=== PATIENT | female | born 1965 | race Caucasian/White ===

== ENCOUNTER 2021-05-26 04:48 | Inpatient (IN) ==
[2021-05-26] MEDS ORDERED: PROMETHAZINE 50 MG/ML AMPUL IM ONE (04:53)
--- NOTE | 2021-05-26 04:54 | Emergency Department Note ---
HPI General Chief complaint: Cold/Flu Symptoms Stated complaint: cold/flu symptoms Time Seen by Provider: 05/26/21 04:52 Source: patient Mode of arrival: ambulatory Limitations: no limitations History of Present Illness HPI Narrative: Narrative: The patient is a 55-year-old female who presents with a chief complaint of flulike symptoms, cough, shortness of breath and vomiting. Patient reports that her was diagnosed with Covid last week and since then she has been having body aches chills vomiting and now with cough and shortness of breath. She states she did not receive a Covid vaccine. Denies any history of SD or stroke or PE or DVT. Denies headache, neck pain or rashes. Related Data Home Medications Medication Instructions Recorded Confirmed omeprazole magnesium 20 mg 20 mg PO QDAY tab 06/11/17 08/27/18 tablet,delayed release Previous Rx's Medication Instructions Recorded epinephrine 0.3 mg/0.3 mL 0.3 mg SUB-Q ONCE #2 each 06/11/17 injection, auto-injector Allergies Allergy/AdvReac Type Severity Reaction Status Date / Time hydromorphone [From Dilaudid] Allergy Severe Bradycardia Verified 08/27/18 11:27 Iodinated Contrast Media Allergy Severe Anaphylaxis Verified 08/27/18 11:27 [Iodinated Contrast- Oral and IV Dye] Penicillins Allergy Unknown Hives Unverified 08/27/18 11:27 Sulfa (Sulfonamide Allergy Unknown Hives Unverified 08/27/18 11:27 Antibiotics) Tetracyclines Allergy Unknown Hives Unverified 08/27/18 11:27 Review of Systems ROS ROS Narrative: Narrative: All systems ED: reviewed and negative except as stated. [facility] Narrative Patient History Narrative: Narrative: Medical/Surgical/Family History All Active Problems (Updated 05/26/21 @ 05:40 by Jabari Culp DO) COVID-19 (Acute) Large breasts (Chronic) Neck pain (Chronic) Chest wall pain (Chronic) Upper back pain (Chronic) Breast pain (Acute) Breast mass, left (Acute) Arthralgia (Acute) Elevated blood pressure reading without diagnosis of hypertension (Acute) Dermatitis (Acute) Barretts esophagus (Chronic ~1997) Food allergy (Chronic) Animal dander allergy (Chronic) Allergic rhinitis (Chronic) H/O: hysterectomy (Chronic ~2001) Cancer of uterus (Chronic) Arthritis (Chronic) Medical History Allergic rhinitis Animal dander allergy Arthralgia February 2017 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 Tariq in [place], left side of forehead; Mohs procedure to remove Cancer of uterus slow growing uterine cancer; hysterectomy performed in [place] and ovaries were spared Chest wall pain secondary to large breasts Dermatitis February 2017 Elevated blood pressure reading without diagnosis of hypertension patient refused to have BP retested at 06/11/2017 appt Food allergy Gallbladder problem Removed Large breasts secondary to large breasts Neck pain secondary to large breasts Pneumonia recurrent pneumonia; has had both pneumovax, not certain who gave these to her Upper back pain secondary to large breasts Surgical History H/O knee surgery (~1995) related to work injury; meniscal injury left knee H/O: hysterectomy (~2001) History of cholecystectomy (~1997) Family History Mother Arthritis Breast cancer BRCA negative Hypertension, essential Type 2 diabetes mellitus Father Arthritis Skin cancer Sister Breast cancer BRCA testing negative Family/Other Breast cancer Aunt Grandfather Lung cancer Bone cancer Grandfather Lung cancer Stomach cancer Grandmother Dementia Brother Type 1 diabetes Family/Other Heart attack Maternal Uncles x2 Stroke Maternal Uncle x1 Social History Smoking Status: Former smoker Alcohol Intake Frequency: holiday/special occasion only Substance Use: does not use Exam Narrative Narrative: Narrative: General Limitations: no limitations General appearance: Present alert and other (ill appearing, vomiting) Head Head: Present atraumatic and normocephalic Eye Eye: Present normal appearance, PERRL and EOMI ENT ENT: Present normal exam, normal oropharynx and mucous membranes moist Neck Neck: Present normal inspection, full ROM and trachea midline Chest Chest: Present normal inspection and symmetric chest wall rise Respiratory Respiratory: Present normal lung sounds bilaterally Cardiovascular Cardiovascular: Present regular rate and normal rhythm Adbominal Abdominal: Present soft, normal bowel sounds and other (obese); Absent tenderness, guarding, rebound, organomegaly, Arnold's sign, tenderness at McBurney's Point and pulsatile mass Rectal Rectal: Present deferred Extremities Extremities: Present normal inspection and full ROM; Absent tenderness Back Back: Present normal inspection and full ROM; Absent tenderness Neurological Neurological: Present alert, oriented X3, CN II-XII intact, normal gait, motor sensory deficit and reflexes normal Psychiatric Psychiatric: Present normal affect Skin Skin: Present warm (WNL); Absent rash Course Course Course Narrative: EKG interpretation, 05/26/2021 at 5:24 AM. Rate 76, MT interval 152, QRS 88, QTc 423, sinus rhythm, normal axis, P waves are upright in leads I, II and III inverted in aVR no MT depression or elevation in lead II or aVR respectively normal axis, good R wave progression, no acute ST segment elevation or depression, no shortened MT interval, no biphasic T waves, no STEMI, nonspecific EKG. Covid screening is positive. Patient is 88% on room air. Patient will need to be admitted for IV remdesivir and further management of her Covid. Patient will be signed out at shift change to Dr. cornejo. Vital Signs Vital signs: Vital Signs Temperature 99.3 F H 05/26/21 04:49 Pulse Rate 95 H 05/26/21 04:49 Respiratory Rate 18 05/26/21 04:49 Blood Pressure 107/65 05/26/21 04:49 Pulse Oximetry (%) 89 L 05/26/21 04:49 Temperature 99.3 F H 05/26/21 04:49 Pulse Rate 89 05/26/21 05:52 Respiratory Rate 18 05/26/21 05:52 Blood Pressure 130/63 05/26/21 05:52 Pulse Oximetry (%) 86 L 05/26/21 05:52 MDM MDM Narrative Medical decision making narrative: Narrative: Lab Data Result diagrams: 05/26/21 05:50 05/26/21 05:49 ED POC Tests ED POC Tests: WATSON - Influenza A Negative WATSON - Influenza B Negative WATSON - SARS Antigen Positive Discharge Plan Patient/Caregiver Discharge Instructions Pt seen by SALES OFFICE ASSISTANT/PA only: No Clinical Impression: COVID-19 Patient Disposition: Still a Patient Condition: Serious Follow up with: Jade Morton, ANNELISE, COMPLIANCE PARALEGAL [Primary Care Provider] - Prescriptions: No Action omeprazole magnesium [Prilosec OTC] 20 mg tablet,delayed release (DR/EC) 20 mg PO QDAY RF: 0 epinephrine [EpiPen 2-Jose] 0.3 mg/0.3 mL auto-injector 0.3 mg SUB-Q ONCE Qty: 2 RF: 2
[2021-05-26] MEDS ORDERED: 0.9 % SODIUM CHLORIDE 1,000 ML IV ONE (05:02)
[2021-05-26] MEDS ORDERED: DEXAMETHASONE 10 MG/ML VIAL IV ONE (05:02)
[2021-05-26] MEDS ORDERED: ONDANSETRON 4 MG/2 ML VIAL ONE (05:13)
[2021-05-26] MEDS ORDERED: ONDANSETRON 4 MG/2 ML VIAL IV ONE (05:18)
[2021-05-26 06:33] LABS: Hematocrit 39.9 % (34.1-44.9); Hemoglobin 14.1 g/dL (11.2-15.7); Mean Cell Volume 89.9 fL (80.0-100.0); Mean Corpuscular HGB Conc 35.3 g/dL (31.0-36.0); Mean Platelet Volume 10.4 fL (7.4-10.4); Platelet Count 199 K/mcL (140-440); RBC 4.44 M/mcL (3.59-5.38); Red Cell Distribution Width 12.1 % (11.5-14.5)
[2021-05-26 06:44] LABS: Partial Thromboplastin Time 30.7 sec (20.0-37.0); Prothrombin Time 13.6 sec (11.9-14.5)
[2021-05-26 06:45] LABS: proBNP 103.5 pg/mL (<125.0)
[2021-05-26 06:46] LABS: ALT/SGPT 58 U/L (<40); AST/SGOT 60 U/L (<32); Albumin 3.8 gm/dL (3.2-5.2); Albumin/Globulin Ratio 1.2 (1.0-2.3); Alkaline Phosphatase 74 U/L (39-117); Bilirubin,Total 0.6 mg/dL (0.1-1.0); Blood Urea Nitrogen 10 mg/dL (6-20); Calcium 8.4 mg/dL (8.6-10.4); Carbon Dioxide 19 mmol/L (22-30); Chloride 96 mmol/L (96-108); Creatine Kinase 303 U/L (24-170); Globulin 3.2 gm/dL (2.2-3.7); Glomerular Filtration Rate 72; Glucose 119 mg/dL (70-105)
[2021-05-26 07:52] LABS: Band Neutrophils % 13 % (0-10); Lymphocytes % 11 % (15-49); Monocytes % (Manual) 7 % (1-12); Platelet Estimate NORMAL (Normal); RBC Morphology NORMAL (Normal); Reactive Lymphocytes 3 % (0-2); Segmented Neutrophils % 66 % (38-78)
--- NOTE | 2021-05-26 07:56 | XRay Report ---
HISTORY: Cold and flu symptoms, positive COVID test, uterine cancer, former smoker FINDINGS: There are subtle alveolar infiltrates in both lung bases, right greater than left. Lung volumes are relatively small due to suboptimal inspiration. There is no evidence of emphysema, mass or congestive heart failure. The heart size is normal. No pleural effusion is present. IMPRESSION: Mild pneumonia Interpreted and Authenticated by: Cam Camarillo 05/26/21
--- NOTE | 2021-05-26 08:32 | Internal Med History&Physical ---
HPI History of Present Illness Patient information: Note initiated : 05/26/21 at 8:28 am Service Date, if different from initiated Date: [] Patient: Marlen Asif 55 y/o F admitted on for cold/flu symptoms. Chief Complaint: [] History of present illness: Ms. Asif is a 55 year old female with a history of Mejía's esophagus, obesity, uterine cancer, skin cancer who developed nausea and vomiting on 05/22/2021 and presented to the ED where she was found to be hypoxic. Patient was started on nasal cannula oxygen supplementation, SARS-CoV-2 antigen test was positive. Hospital medicine was asked to admit patient. Patient says that she is not vaccinated, she thinks she was infected by SARS-CoV-2 by a guest at her bed and breakfast. Patient's main complaint when I saw her was diarrhea, the patient was saturating in the low 90s on room air. The patient has had a dry cough, and high-grade temperatures. CT of her chest showed bilateral subtle alveolar infiltrates. Review of systems Constitutional: positive for fatigue Eyes: no vision changes or pain Cardiovascular: no chest pain, no palpitations Respiratory: positive for dry cough Gastrointestinal: positive for nausea, vomiting, diarrhea Genitourinary: no dysuria or difficulty voiding Musculoskeletal: no arthralgia or myalgia Integumentary: no skin lesion or wound Neurological: no focal weakness or numbness Psychiatric: no anxiety or depression Physical exam Head: Atraumatic, normal inspection. Eyes: normal appearance, no scleral icterus. Neck: full ROM Respiratory: no respiratory distress. Cardiovascular: normal rate and rhythm, S1, S2. GI/Abdominal: soft, nontender, no guarding. Extremities: full range of motion, nontender. Neurological: CN II-XII intact, intact motor, intact sensation. Psychiatric: normal mood. Skin: warm, normal color PFSH PFSH All Active Problems (Updated 05/26/21 @ 05:40 by Jabari Culp DO) COVID-19 (Acute) Large breasts (Chronic) Neck pain (Chronic) Chest wall pain (Chronic) Upper back pain (Chronic) Breast pain (Acute) Breast mass, left (Acute) Arthralgia (Acute) Elevated blood pressure reading without diagnosis of hypertension (Acute) Dermatitis (Acute) Barretts esophagus (Chronic ~1997) Food allergy (Chronic) Animal dander allergy (Chronic) Allergic rhinitis (Chronic) H/O: hysterectomy (Chronic ~2001) Cancer of uterus (Chronic) Arthritis (Chronic) Medical History Allergic rhinitis Animal dander allergy Arthralgia February 2017 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 Tariq in [place], left side of forehead; Mohs procedure to remove Cancer of uterus slow growing uterine cancer; hysterectomy performed in [place] and ovaries were spared Chest wall pain secondary to large breasts Dermatitis February 2017 Elevated blood pressure reading without diagnosis of hypertension patient refused to have BP retested at 06/11/2017 appt Food allergy Gallbladder problem Removed Large breasts secondary to large breasts Neck pain secondary to large breasts Pneumonia recurrent pneumonia; has had both pneumovax, not certain who gave these to her Upper back pain secondary to large breasts Surgical History H/O knee surgery (~1995) related to work injury; meniscal injury left knee H/O: hysterectomy (~2001) History of cholecystectomy (~1997) Family History Mother Arthritis Breast cancer BRCA negative Hypertension, essential Type 2 diabetes mellitus Father Arthritis Skin cancer Sister Breast cancer BRCA testing negative Family/Other Breast cancer Aunt Grandfather Lung cancer Bone cancer Grandfather Lung cancer Stomach cancer Grandmother Dementia Brother Type 1 diabetes Family/Other Heart attack Maternal Uncles x2 Stroke Maternal Uncle x1 Social History (Updated 08/27/18 @ 11:59 by Trino Lopez MD) household members: spouse marital status: occupational status: employed occupation: [employer] pets and animals: No sexually active: Yes other: Children-2 well-balanced diet: daily or most days daily servings fruits/ve or more times/day physical activity: walking frequency: 1-2 times per week duration: 15-30 minutes/day alcohol intake frequency: holiday/special occasion only substance use type: does not use dangelo/tenriism: Episcopal special dangelo needs: No seatbelt use: always working smoke detector in home: Yes additional history: [place] () MEDS/ALLERGIES Home Medications and Allergies Allergies Allergy/AdvReac Type Severity Reaction Status Date / Time Iodinated Contrast Media Allergy Severe Anaphylaxis Verified 05/26/21 12:54 [Iodinated Contrast- Oral and IV Dye] Tetracyclines Allergy Intermediate Vomiting Unverified 05/26/21 12:53 Penicillins Allergy Mild Hives Unverified 05/26/21 10:29 Sulfa (Sulfonamide Allergy Mild Hives Unverified 05/26/21 10:29 Antibiotics) hydromorphone [From Dilaudid] AdvReac Intermediate Bradycardia Verified 05/26/21 10:29 EXAM Constitutional Vitals: Temp Pulse Resp BP Pulse Ox 99.3 F H 82 18 108/61 93 05/26/21 04:49 05/26/21 07:01 05/26/21 05:52 05/26/21 07:22 05/26/21 07:01 DATA Data Completed and Pending Labs: Labs from last 24 hours 05/26/21 05/26/21 05/26/21 05:50 05:50 05:50 WBC 6.0 RBC 4.44 Hgb 14.1 Hct 39.9 MCV 89.9 MCH 31.8 MCHC 35.3 RDW 12.1 Plt Count 199 MPV 10.4 Seg Neutrophils % 66 Band Neutrophils % 13 H Lymphocytes % 11 L Monocytes % (Manual) 7 Reactive Lymphocytes 3 H Platelet Estimate Normal RBC Morphology Normal PT 13.6 INR 1.0 APTT 30.7 VBG Lactic Acid Sodium Potassium Chloride Carbon Dioxide Anion Gap BUN Creatinine GFR Calculation Glucose Calcium Magnesium Total Bilirubin AST ALT Alkaline Phosphatase Total Creatine Kinase Troponin T < 0.01 NT-Pro-B Natriuret Pep Total Protein Albumin Globulin Albumin/Globulin Ratio Lipase Procalcitonin 05/26/21 05/26/21 05/26/21 05:49 05:49 05:47 WBC RBC Hgb Hct MCV MCH MCHC RDW Plt Count MPV Seg Neutrophils % Band Neutrophils % Lymphocytes % Monocytes % (Manual) Reactive Lymphocytes Platelet Estimate RBC Morphology PT INR APTT VBG Lactic Acid 1.5 Sodium 131 L Potassium 3.4 Chloride 96 Carbon Dioxide 19 L Anion Gap 16.0 BUN 10 Creatinine 0.9 GFR Calculation 72 Glucose 119 H Calcium 8.4 L Magnesium 1.9 Total Bilirubin 0.6 AST 60 H ALT 58 H Alkaline Phosphatase 74 Total Creatine Kinase 303 H Troponin T NT-Pro-B Natriuret Pep 103.5 Total Protein 7.0 Albumin 3.8 Globulin 3.2 Albumin/Globulin Ratio 1.2 Lipase 75 H Procalcitonin 0.09 A/P Narrative A/P Narrative: Assessment: 55 year old female with a history of Mejía's esophagus, uterine cancer, obesity admitted for acute hypoxic respiratory failure secondary to severe COVID-19 pneumonia. #Acute hypoxic respiratory failure #Severe COVID-19 pneumonia #Nausea and vomiting likely d/t COVID-19 #Mejía's esophagus #Obesity BMI 33 Plan -Dexamethasone and Remdesivir -Oxygen supplementation -IV fluid. -Check CRP, d-dimer. -Consider anticoagulation if d-dimer very high, otherwise prophylactic DVT lovenox dosing. -Daily labs, CRP. -Antiemetics prn. -Home med reconcilliation. -DVT ppx: Lovenox -Code status: Disintegrator Operator Spent With Patient Time: Total time spent is greater than 50% in coordination of care (as documented) at patient's floor/unit and/or counseling patient:
[2021-05-26] MEDS ORDERED: ENOXAPARIN 40 MG/0.4 ML SYRINGE SQ SCH (10:03)
[2021-05-26] MEDS ORDERED: ACETAMINOPHEN 325 MG TABLET PO PRN (10:03)
[2021-05-26] MEDS ORDERED: 0.9 % SODIUM CHLORIDE 1,000 ML IV SCH ×2 (10:03→15:38)
[2021-05-26] MEDS ORDERED: ONDANSETRON 4 MG/2 ML VIAL IV PRN (10:03)
[2021-05-26] MEDS ORDERED: REMDESIVIR 200 MG in 0.9 % SODIUM CHLORIDE 250 ML IV ONE (11:00)
[2021-05-26] MEDS: 0.9 % SODIUM CHLORIDE 10 ML SYRINGE IV SCH ×2 (13:28→21:21)
--- NOTE | 2021-05-26 14:13 | Emergency Department Note ---
HPI General Chief complaint: Cold/Flu Symptoms Stated complaint: cold/flu symptoms Time Seen by Provider: 05/26/21 04:52 Source: patient Mode of arrival: ambulatory Limitations: no limitations History of Present Illness HPI Narrative: Narrative: Patient received on signout. Related Data Home Medications Medication Instructions Recorded Confirmed omeprazole magnesium 20 mg 20 mg PO QDAY tab 06/11/17 08/27/18 tablet,delayed release Previous Rx's Medication Instructions Recorded epinephrine 0.3 mg/0.3 mL 0.3 mg SUB-Q ONCE #2 each 06/11/17 injection, auto-injector Allergies Allergy/AdvReac Type Severity Reaction Status Date / Time Iodinated Contrast Media Allergy Severe Anaphylaxis Verified 05/26/21 12:54 [Iodinated Contrast- Oral and IV Dye] Tetracyclines Allergy Intermediate Vomiting Unverified 05/26/21 12:53 Penicillins Allergy Mild Hives Unverified 05/26/21 10:29 Sulfa (Sulfonamide Allergy Mild Hives Unverified 05/26/21 10:29 Antibiotics) hydromorphone [From Dilaudid] AdvReac Intermediate Bradycardia Verified 05/26/21 10:29 Review of Systems ROS ROS Narrative: Narrative: [facility] Narrative Patient History Narrative: Narrative: Medical/Surgical/Family History All Active Problems (Updated 05/26/21 @ 05:40 by Jabari Culp DO) COVID-19 (Acute) Large breasts (Chronic) Neck pain (Chronic) Chest wall pain (Chronic) Upper back pain (Chronic) Breast pain (Acute) Breast mass, left (Acute) Arthralgia (Acute) Elevated blood pressure reading without diagnosis of hypertension (Acute) Dermatitis (Acute) Barretts esophagus (Chronic ~1997) Food allergy (Chronic) Animal dander allergy (Chronic) Allergic rhinitis (Chronic) H/O: hysterectomy (Chronic ~2001) Cancer of uterus (Chronic) Arthritis (Chronic) Medical History Allergic rhinitis Animal dander allergy Arthralgia February 2017 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 Tariq in [place], left side of forehead; Mohs procedure to remove Cancer of uterus slow growing uterine cancer; hysterectomy performed in [place] and ovaries were spared Chest wall pain secondary to large breasts Dermatitis February 2017 Elevated blood pressure reading without diagnosis of hypertension patient refused to have BP retested at 06/11/2017 appt Food allergy Gallbladder problem Removed Large breasts secondary to large breasts Neck pain secondary to large breasts Pneumonia recurrent pneumonia; has had both pneumovax, not certain who gave these to her Upper back pain secondary to large breasts Surgical History H/O knee surgery (~1995) related to work injury; meniscal injury left knee H/O: hysterectomy (~2001) History of cholecystectomy (~1997) Family History Mother Arthritis Breast cancer BRCA negative Hypertension, essential Type 2 diabetes mellitus Father Arthritis Skin cancer Sister Breast cancer BRCA testing negative Family/Other Breast cancer Aunt Grandfather Lung cancer Bone cancer Grandfather Lung cancer Stomach cancer Grandmother Dementia Brother Type 1 diabetes Family/Other Heart attack Maternal Uncles x2 Stroke Maternal Uncle x1 Social History Smoking Status: Former smoker Alcohol Intake Frequency: holiday/special occasion only Substance Use: does not use Exam Narrative Narrative: Narrative: General Limitations: no limitations Course Vital Signs Vital signs: Vital Signs Temperature 99.3 F H 05/26/21 04:49 Pulse Rate 95 H 05/26/21 04:49 Respiratory Rate 18 05/26/21 04:49 Blood Pressure 107/65 05/26/21 04:49 Pulse Oximetry (%) 89 L 05/26/21 04:49 Temperature 99.4 F H 05/26/21 12:30 Pulse Rate 86 05/26/21 12:30 Respiratory Rate 20 05/26/21 12:30 Blood Pressure 115/74 05/26/21 12:30 Pulse Oximetry (%) 91 05/26/21 12:30 MDM MDM Narrative Medical decision making narrative: Narrative: There is a bed available for the patient here at the hospital this morning. I spoke the on-call hospitalist. Case reviewed in detail over the phone. Hospitalist agreed with admission. Patient is agreeable with the plan. Her questions were answered. Lab Data Result diagrams: 05/26/21 05:50 05/26/21 05:49 Labs: Lab Results 05/26/21 05/26/21 05/26/21 Range/Units 05:47 05:49 05:49 WBC (4.5-11.0) K/mcL RBC (3.59-5.38) M/mcL Hgb (11.2-15.7) g/dL Hct (34.1-44.9) % MCV (80.0-100.0) fL MCH (26.0-34.0) pg MCHC (31.0-36.0) g/dL RDW (11.5-14.5) % Plt Count (140-440) K/mcL MPV (7.4-10.4) fL Seg Neutrophils % (38-78) % Band Neutrophils % (0-10) % Lymphocytes % (15-49) % Monocytes % (Manual) (1-12) % Reactive Lymphocytes (0-2) % Platelet Estimate (Normal) RBC Morphology (Normal) PT (11.9-14.5) sec INR (0.9-1.1) APTT (20.0-37.0) sec VBG Lactic Acid 1.5 (0.5-2.0) mmol/L Sodium 131 L (133-145) mmol/L Potassium 3.4 (3.3-5.1) mmol/L Chloride 96 (96-108) mmol/L Carbon Dioxide 19 L (22-30) mmol/L Anion Gap 16.0 (8.0-16.0) BUN 10 (6-20) mg/dL Creatinine 0.9 (0.6-1.1) mg/dL GFR Calculation 72 Glucose 119 H (70-105) mg/dL Calcium 8.4 L (8.6-10.4) mg/dL Magnesium 1.9 (1.6-2.5) mg/dL Total Bilirubin 0.6 (0.1-1.0) mg/dL AST 60 H (<32) U/L ALT 58 H (<40) U/L Alkaline Phosphatase 74 (39-117) U/L Total Creatine Kinase 303 H (24-170) U/L Troponin T (<0.03) ng/mL C-Reactive Protein (0.03-0.80) mg/dL NT-Pro-B Natriuret Pep 103.5 (<125.0) pg/mL Total Protein 7.0 (5.9-8.4) gm/dL Albumin 3.8 (3.2-5.2) gm/dL Globulin 3.2 (2.2-3.7) gm/dL Albumin/Globulin Ratio 1.2 (1.0-2.3) Lipase 75 H (7-60) U/L Procalcitonin 0.09 (<0.10) ng/mL 05/26/21 05/26/21 05/26/21 Range/Units 05:49 05:50 05:50 WBC 6.0 (4.5-11.0) K/mcL RBC 4.44 (3.59-5.38) M/mcL Hgb 14.1 (11.2-15.7) g/dL Hct 39.9 (34.1-44.9) % MCV 89.9 (80.0-100.0) fL MCH 31.8 (26.0-34.0) pg MCHC 35.3 (31.0-36.0) g/dL RDW 12.1 (11.5-14.5) % Plt Count 199 (140-440) K/mcL MPV 10.4 (7.4-10.4) fL Seg Neutrophils % 66 (38-78) % Band Neutrophils % 13 H (0-10) % Lymphocytes % 11 L (15-49) % Monocytes % (Manual) 7 (1-12) % Reactive Lymphocytes 3 H (0-2) % Platelet Estimate Normal (Normal) RBC Morphology Normal (Normal) PT 13.6 (11.9-14.5) sec INR 1.0 (0.9-1.1) APTT 30.7 (20.0-37.0) sec VBG Lactic Acid (0.5-2.0) mmol/L Sodium (133-145) mmol/L Potassium (3.3-5.1) mmol/L Chloride (96-108) mmol/L Carbon Dioxide (22-30) mmol/L Anion Gap (8.0-16.0) BUN (6-20) mg/dL Creatinine (0.6-1.1) mg/dL GFR Calculation Glucose (70-105) mg/dL Calcium (8.6-10.4) mg/dL Magnesium (1.6-2.5) mg/dL Total Bilirubin (0.1-1.0) mg/dL AST (<32) U/L ALT (<40) U/L Alkaline Phosphatase (39-117) U/L Total Creatine Kinase (24-170) U/L Troponin T (<0.03) ng/mL C-Reactive Protein 2.30 H (0.03-0.80) mg/dL NT-Pro-B Natriuret Pep (<125.0) pg/mL Total Protein (5.9-8.4) gm/dL Albumin (3.2-5.2) gm/dL Globulin (2.2-3.7) gm/dL Albumin/Globulin Ratio (1.0-2.3) Lipase (7-60) U/L Procalcitonin (<0.10) ng/mL 05/26/21 Range/Units 05:50 WBC (4.5-11.0) K/mcL RBC (3.59-5.38) M/mcL Hgb (11.2-15.7) g/dL Hct (34.1-44.9) % MCV (80.0-100.0) fL MCH (26.0-34.0) pg MCHC (31.0-36.0) g/dL RDW (11.5-14.5) % Plt Count (140-440) K/mcL MPV (7.4-10.4) fL Seg Neutrophils % (38-78) % Band Neutrophils % (0-10) % Lymphocytes % (15-49) % Monocytes % (Manual) (1-12) % Reactive Lymphocytes (0-2) % Platelet Estimate (Normal) RBC Morphology (Normal) PT (11.9-14.5) sec INR (0.9-1.1) APTT (20.0-37.0) sec VBG Lactic Acid (0.5-2.0) mmol/L Sodium (133-145) mmol/L Potassium (3.3-5.1) mmol/L Chloride (96-108) mmol/L Carbon Dioxide (22-30) mmol/L Anion Gap (8.0-16.0) BUN (6-20) mg/dL Creatinine (0.6-1.1) mg/dL GFR Calculation Glucose (70-105) mg/dL Calcium (8.6-10.4) mg/dL Magnesium (1.6-2.5) mg/dL Total Bilirubin (0.1-1.0) mg/dL AST (<32) U/L ALT (<40) U/L Alkaline Phosphatase (39-117) U/L Total Creatine Kinase (24-170) U/L Troponin T < 0.01 (<0.03) ng/mL C-Reactive Protein (0.03-0.80) mg/dL NT-Pro-B Natriuret Pep (<125.0) pg/mL Total Protein (5.9-8.4) gm/dL Albumin (3.2-5.2) gm/dL Globulin (2.2-3.7) gm/dL Albumin/Globulin Ratio (1.0-2.3) Lipase (7-60) U/L Procalcitonin (<0.10) ng/mL ED POC Tests ED POC Tests: WATSON - Influenza A Negative WATSON - Influenza B Negative WATSON - SARS Antigen Positive Discharge Plan Patient/Caregiver Discharge Instructions Pt seen by AUTOMATION TEST ENGINEER/PA only: No Clinical Impression: COVID-19 Patient Disposition: Xfer As Inpt ([facility]) Condition: Serious Discharge Date/Time: 05/26/21 09:47
[2021-05-26 18:04] LABS: Amphetamine Screen,Urine None detected; Barbiturate Screen,Urine None detected; Benzodiazepines Screen,Urine None detected; Cannabinoid Screen,Urine None detected; Cocaine Screen,Urine None detected; Opiate Screen,Urine Suspect Positive; Oxycodone, Urine Screen None detected; Phencyclidine Screen,Urine None detected
[2021-05-26] MEDS: LOPERAMIDE 2 MG CAPSULE PO PRN (21:18)
[2021-05-26] MEDS: ENOXAPARIN 100 MG/ML SYRINGE SQ SCH (21:20)
[2021-05-26] MEDS: SENNOSIDES 1 TABLET PO SCH ×2 (21:20→21:41)
[2021-05-27] MEDS: 0.9 % SODIUM CHLORIDE 10 ML SYRINGE IV SCH ×3 (04:21→21:22)
[2021-05-27] MEDS: guaiFENesin/CODEINE 10 ML UDC PO PRN ×2 (04:25→11:17)
[2021-05-27 07:04] LABS: Basophils # (Auto) 0 K/mcL (0.00-0.30); Basophils % (Auto) 0 % (0.0-2.0); Eosinophils # (Auto) 0 K/mcL (0.00-0.70); Eosinophils % (Auto) 0 % (0.0-7.0); Hematocrit 37.4 % (34.1-44.9); Hemoglobin 12.6 g/dL (11.2-15.7); Lymphocytes # (Auto) 2.24 K/mcL (1.50-4.80); Lymphocytes % (Auto) 34.3 % (15.5-49.0); Mean Cell Volume 94.9 fL (80.0-100.0); Mean Corpuscular HGB Conc 33.7 g/dL (31.0-36.0); Mean Platelet Volume 10.5 fL (7.4-10.4); Monocytes # (Auto) 0.37 K/mcL (0.10-0.90); Monocytes % (Auto) 5.7 % (1.0-12.0); Platelet Count 169 K/mcL (140-440); RBC 3.94 M/mcL (3.59-5.38); Red Cell Distribution Width 12.7 % (11.5-14.5); WBC 6.5 K/mcL (4.5-11.0)
[2021-05-27 08:39] LABS: ALT/SGPT 42 U/L (<40); AST/SGOT 46 U/L (<32); Alkaline Phosphatase 60 U/L (39-117); Bilirubin,Direct < 0.2 mg/dL (0-0.3); Bilirubin,Total 0.5 mg/dL (0.1-1.0); Blood Urea Nitrogen 8 mg/dL (6-20); Calcium 7.9 mg/dL (8.6-10.4); Carbon Dioxide 21 mmol/L (22-30); Chloride 98 mmol/L (96-108); Globulin 3.1 gm/dL (2.2-3.7); Glomerular Filtration Rate 83; Glucose 91 mg/dL (70-105); Lactate Dehydrogenase 349 U/L (135-225); Phosphorous 2.4 mg/dL (2.5-4.5); Triglycerides 60 mg/dL (<150); Uric Acid 4.7 mg/dL (2.5-8.0)
[2021-05-27] MEDS: DEXAMETHASONE 10 MG/ML VIAL IV SCH (11:15)
[2021-05-27] MEDS: ENOXAPARIN 100 MG/ML SYRINGE SQ SCH ×2 (11:15→21:21)
[2021-05-27] MEDS: REMDESIVIR 100 MG in 0.9 % SODIUM CHLORIDE 250 ML IV SCH (12:04)
--- NOTE | 2021-05-27 13:13 | EKG ---
[facility] Test Date: 2021-05-26 Pat Name: Marlen Asif Department: ED Room: Gender: Female [employer]: SE : 1965 Requested By: Jabari Culp Order Number: [id number] Reading MD: Naldo Cordero Measurements Intervals [place] Rate: 76 P: 6 ID: [id number] QRS: 26 QRSD: 88 T: 53 QT: 376 QTc: 423 Interpretive Statements SINUS RHYTHM Electronically Signed On 05-27-2021 13:12:58 PDT by Naldo Cordero /store/M0/[id number]
--- NOTE | 2021-05-27 13:59 | Internal Med Progress Note ---
SUBJECTIVE Subjective Patient information: Note initiated : 05/27/21 at 1:59 pm Service Date, if different from initiated Date: [] Patient: Marlen Asif 55 y/o F admitted on 05/26/21 for cold/flu symptoms. Chief Complaint: [] Interval history: Ms. Asif is a 55 year old female with a history of Mejía's esophagus, obesity, uterine cancer, skin cancer who developed nausea and vomiting on 05/22/2021 and presented to the ED where she was found to be hypoxic. Patient was started on nasal cannula oxygen supplementation, SARS-CoV-2 antigen test was positive. Hospital medicine was asked to admit patient. Patient says that she is not vaccinated, she thinks she was infected by SARS-CoV-2 by a guest at her bed and breakfast. Patient's main complaint when I saw her was diarrhea, the patient was saturating in the low 90s on room air. The patient has had a dry cough, and high-grade temperatures. CT of her chest showed bilateral subtle alveolar infiltrates. 05/27: Feels a little better today, on 2 l/min oxygen, high grade temp overnight, CRP increased mildly. Physical exam Head: Atraumatic, normal inspection. Eyes: normal appearance, no scleral icterus. Neck: full ROM Respiratory: no respiratory distress. Cardiovascular: normal rate and rhythm, S1, S2. GI/Abdominal: soft, nontender, no guarding. Extremities: full range of motion, nontender. Neurological: CN II-XII intact, intact motor, intact sensation. Psychiatric: normal mood. Skin: warm, normal color Constitutional Vitals: Vital Signs Temp Pulse Resp BP Pulse Ox 97.8 F 81 20 124/77 91 05/27/21 08:00 05/27/21 08:00 05/27/21 08:00 05/27/21 08:00 05/27/21 10:41 Period Temp Pulse Resp BP Sys/Hurt Pulse Ox Last 24 Hr 97.8 F-100.4 F 77-87 18-20 109-125/72-84 90-92 Intake and Output 05/26/21 05/27/21 05/27/21 21:59 05:59 13:59 Intake Total 0657 974 5561 Output Total 750 1500 Balance 960 -700 1250 Weight 104.054 kg 104.054 kg Patient Weight 05/28/21 05:59 Weight 104.054 kg Intake & Output: Intake & Output 05/26/21 05/27/21 05/27/21 21:59 05:59 13:59 Intake Total 8930 656 1245 Output Total 750 1500 Balance 960 -700 1250 Weight 104.054 kg 104.054 kg Intake: IV 1000 1250 Sodium Chloride 0.9% 1,000 ml @ 1000 1000 100 mls/hr IV .Q10H [facility] Rx#: [id number] Veklury 100 mg In Sodium 250 Chloride 0.9% 250 ml @ 500 mls/ hr IV Q24H [facility] Rx#:[id number] Oral 710 800 Output: Void Amount 750 1500 Other: Meal Dinner Percent of Meal Consumed 50% Feeding Ability Independent Urine Appearance Clear Clear Urine Color Bright Yellow Bright Yellow Urine Odor Strong Stool Size Small Stool Color Brown Stool Consistency Watery Loose # Bowel Movements 3 OBJ DATA Labs CBC & Chem 7: 05/27/21 05:25 05/27/21 05:25 Labs: Abnormal Lab Results 05/27/21 05/27/21 05/26/21 05:25 05:25 16:30 MPV 10.5 H Band Neutrophils % Lymphocytes % Reactive Lymphocytes D-Dimer Sodium 132 L Carbon Dioxide 21 L Glucose Calcium 7.9 L Phosphorus 2.4 L GGT 138 H AST 46 H ALT 42 H Lactate Dehydrogenase 349 H Total Creatine Kinase C-Reactive Protein 3.00 H Albumin 3.0 L Lipase Urine Opiates Screen Suspect positive A 05/26/21 05/26/21 05/26/21 10:40 05:50 05:49 MPV Band Neutrophils % 13 H Lymphocytes % 11 L Reactive Lymphocytes 3 H D-Dimer 3.79 H Sodium Carbon Dioxide Glucose Calcium Phosphorus GGT AST ALT Lactate Dehydrogenase Total Creatine Kinase C-Reactive Protein 2.30 H Albumin Lipase Urine Opiates Screen 05/26/21 05:49 MPV Band Neutrophils % Lymphocytes % Reactive Lymphocytes D-Dimer Sodium 131 L Carbon Dioxide 19 L Glucose 119 H Calcium 8.4 L Phosphorus GGT AST 60 H ALT 58 H Lactate Dehydrogenase Total Creatine Kinase 303 H C-Reactive Protein Albumin Lipase 75 H Urine Opiates Screen Meds: Medications Acetaminophen (Acetaminophen 325 Mg Tablet) 650 mg PO Q6HP PRN; Protocol PRN Reason: Per Pain Protocol/Fever > 101 Dexamethasone (Dexamethasone 10 Mg/Ml Vial) 6 mg IV DAILY [facility] Stop: 06/05/21 08:59 Last Admin: 05/27/21 11:15 Dose: 6 mg Documented by: Enoxaparin Sodium (Enoxaparin 100 Mg/Ml Syringe) 100 mg SQ BID [facility] Last Admin: 05/27/21 11:15 Dose: 100 mg Documented by: Guaifenesin/Codeine Phosphate (Guaifenesin/Codeine 10 Ml Udc) 5 ml PO Q4HP PRN PRN Reason: Cough Last Admin: 05/27/21 11:17 Dose: 5 ml Documented by: REMDESIVIR 100 mg/ Sodium (Chloride) 250 mls @ 500 mls/hr IV Q24H [facility] Stop: 05/30/21 10:29 Last Infusion: 05/27/21 12:38 Dose: Infused Documented by: Loperamide HCl (Loperamide 2 Mg Capsule) 2 mg PO PRN PRN PRN Reason: Diarrhea Last Admin: 05/26/21 21:18 Dose: 2 mg Documented by: Ondansetron HCl (Ondansetron 4 Mg/2 Ml Vial) 4 mg IV Q6HP PRN PRN Reason: Nausea And Vomiting Senna (Sennosides 1 Tablet) 2 tab PO HS [facility] Last Admin: 05/26/21 21:41 Dose: Not Given Documented by: Sodium Chloride (0.9 % Sodium Chloride 10 Ml Syringe) 10 ml IV Q8 [facility] Last Admin: 05/27/21 04:21 Dose: Not Given Documented by: A/P Narrative A/P Narrative: Assessment: 55 year old female with a history of Mejía's esophagus, uterine cancer, obesity admitted for acute hypoxic respiratory failure secondary to severe COVID-19 pneumonia. #Acute hypoxic respiratory failure #Severe COVID-19 pneumonia #Nausea and vomiting likely d/t COVID-19 #Mejía's esophagus #Obesity BMI 33 Plan -Dexamethasone and Remdesivir -Oxygen supplementation -IV fluid. -Therapeutic lovenox BID (per ACTIV-4a data) -Daily labs, CRP. -Antiemetics prn. -Essential home medications. -DVT ppx: Lovenox -Code status: Glass Breaker Spent With Patient Time: Total time spent is greater than 50% in coordination of care (as documented) at patient's floor/unit and/or counseling patient:
--- NOTE | 2021-05-27 20:28 | Internal Med Progress Note ---
SUBJECTIVE Subjective Patient information: Note initiated : 05/27/21 at 8:27 pm Service Date, if different from initiated Date: [] Patient: Marlen Asif 55 y/o F admitted on 05/26/21 for cold/flu symptoms. Chief Complaint: [] Interval history: Ms. Asif is a 55 year old female with a history of Mejía's esophagus, obesity, uterine cancer, skin cancer who developed nausea, vomiting, and diarrhea on 05/22/2021 and presented to the ED where she was found to be hypoxic. Patient was started on nasal cannula oxygen supplementation, SARS-CoV-2 antigen test was positive. Hospital medicine was asked to admit patient. Patient says that she is not vaccinated, she thinks she was infected by SARS-CoV-2 by a guest at her bed and breakfast. Patient's main complaint when I saw her was diarrhea, the patient was saturating in the low 90s on room air. The patient has had a dry cough, and high-grade temperatures. CT of her chest showed bilateral subtle alveolar infiltrates. 05/27: Feels a little better today, on 2 l/min oxygen, high grade temp overnight, CRP increased mildly. Started Imodium prn for diarrhea. 05/28: Continues on 2 l/min, feels like she is improving overall, diarrhea well controlled with imodium, resolved nausea and vomiting, improved appetite. Review of systems: afebrile, no nausea, diarrhea improved, no dypsnea at rest. Physical exam Head: Atraumatic, normal inspection. Eyes: normal appearance, no scleral icterus. Neck: full ROM Respiratory: nasal canula oxygen, no respiratory distress. Cardiovascular: normal rate and rhythm, S1, S2. GI/Abdominal: obesely distended, soft, nontender, no guarding. Extremities: full range of motion, nontender. Neurological: CN II-XII intact, intact motor, intact sensation. Psychiatric: normal mood. Skin: warm, normal color Constitutional Vitals: Vital Signs Temp Pulse Resp BP Pulse Ox 97.0 F 81 24 H 123/90 90 05/27/21 16:00 05/27/21 16:00 05/27/21 16:00 05/27/21 16:00 05/27/21 16:00 Period Temp Pulse Resp BP Sys/Hurt Pulse Ox Last 24 Hr 97.0 F-99.1 F 77-81 20-24 123-132/72-90 90-91 Intake and Output 05/27/21 05/27/21 05/27/21 05:59 13:59 21:59 Intake Total 800 1450 Output Total 1500 Balance -700 1450 Weight 104.054 kg Patient Weight 05/28/21 05:59 Weight 104.054 kg Intake & Output: Intake & Output 05/27/21 05/27/21 05/27/21 05:59 13:59 21:59 Intake Total 800 1450 Output Total 1500 Balance -700 1450 Weight 104.054 kg Intake: IV 1250 Sodium Chloride 0.9% 1,000 ml @ 1000 100 mls/hr IV .Q10H [facility] Rx#: [id number] Veklury 100 mg In Sodium 250 Chloride 0.9% 250 ml @ 500 mls/ hr IV Q24H [facility] Rx#:[id number] Oral 800 200 Output: Void Amount 1500 Other: Meal Breakfast Percent of Meal Consumed 100% Feeding Ability Independent Urine Appearance Clear Urine Color Bright Yellow Stool Consistency Loose # Bowel Movements 3 OBJ DATA Labs CBC & Chem 7: 05/27/21 05:25 05/28/21 05:22 Labs: Abnormal Lab Results 05/27/21 05/27/21 05/26/21 05:25 05:25 16:30 MPV 10.5 H Band Neutrophils % Lymphocytes % Reactive Lymphocytes D-Dimer Sodium 132 L Carbon Dioxide 21 L Glucose Calcium 7.9 L Phosphorus 2.4 L GGT 138 H AST 46 H ALT 42 H Lactate Dehydrogenase 349 H Total Creatine Kinase C-Reactive Protein 3.00 H Albumin 3.0 L Lipase Urine Opiates Screen Suspect positive A 05/26/21 05/26/21 05/26/21 10:40 05:50 05:49 MPV Band Neutrophils % 13 H Lymphocytes % 11 L Reactive Lymphocytes 3 H D-Dimer 3.79 H Sodium Carbon Dioxide Glucose Calcium Phosphorus GGT AST ALT Lactate Dehydrogenase Total Creatine Kinase C-Reactive Protein 2.30 H Albumin Lipase Urine Opiates Screen 05/26/21 05:49 MPV Band Neutrophils % Lymphocytes % Reactive Lymphocytes D-Dimer Sodium 131 L Carbon Dioxide 19 L Glucose 119 H Calcium 8.4 L Phosphorus GGT AST 60 H ALT 58 H Lactate Dehydrogenase Total Creatine Kinase 303 H C-Reactive Protein Albumin Lipase 75 H Urine Opiates Screen Meds: Medications Acetaminophen (Acetaminophen 325 Mg Tablet) 650 mg PO Q6HP PRN; Protocol PRN Reason: Per Pain Protocol/Fever > 101 Dexamethasone (Dexamethasone 10 Mg/Ml Vial) 6 mg IV DAILY [facility] Stop: 06/05/21 08:59 Last Admin: 05/27/21 11:15 Dose: 6 mg Documented by: Enoxaparin Sodium (Enoxaparin 100 Mg/Ml Syringe) 100 mg SQ BID [facility] Last Admin: 05/27/21 11:15 Dose: 100 mg Documented by: Guaifenesin/Codeine Phosphate (Guaifenesin/Codeine 10 Ml Udc) 5 ml PO Q4HP PRN PRN Reason: Cough Last Admin: 05/27/21 11:17 Dose: 5 ml Documented by: REMDESIVIR 100 mg/ Sodium (Chloride) 250 mls @ 500 mls/hr IV Q24H [facility] Stop: 05/30/21 10:29 Last Infusion: 05/27/21 12:38 Dose: Infused Documented by: Loperamide HCl (Loperamide 2 Mg Capsule) 2 mg PO PRN PRN PRN Reason: Diarrhea Last Admin: 05/26/21 21:18 Dose: 2 mg Documented by: Ondansetron HCl (Ondansetron 4 Mg/2 Ml Vial) 4 mg IV Q6HP PRN PRN Reason: Nausea And Vomiting Senna (Sennosides 1 Tablet) 2 tab PO HS [facility] Last Admin: 05/26/21 21:41 Dose: Not Given Documented by: Sodium Chloride (0.9 % Sodium Chloride 10 Ml Syringe) 10 ml IV Q8 [facility] Last Admin: 05/27/21 12:45 Dose: 10 ml Documented by: A/P Narrative A/P Narrative: Assessment: 55 year old female with a history of Mejía's esophagus, uterine cancer, obesity admitted for acute hypoxic respiratory failure secondary to severe COVID-19 pneumonia. #Acute hypoxic respiratory failure #Severe COVID-19 pneumonia #Nausea, vomiting, diarrhea likely d/t COVID-19 #Mejía's esophagus #Obesity BMI 33 Plan -Dexamethasone and Remdesivir -Oxygen supplementation as needed. -Xray chest today. -Therapeutic lovenox BID while inpatiet (per ACTIV-4a trial data). -Daily labs, CRP. -Zofran prn. -Imodium prn. -Essential home medications. -DVT ppx: Lovenox -Code status: Dean Of Admissions Spent With Patient Time: Total time spent is greater than 50% in coordination of care (as documented) at patient's floor/unit and/or counseling patient:
[2021-05-27] MEDS: SENNOSIDES 1 TABLET PO SCH (21:22)
[2021-05-28] MEDS: 0.9 % SODIUM CHLORIDE 10 ML SYRINGE IV SCH ×3 (04:39→20:59)
[2021-05-28 07:52] LABS: ALT/SGPT 36 U/L (<40); AST/SGOT 38 U/L (<32); Albumin/Globulin Ratio 0.9 (1.0-2.3); Alkaline Phosphatase 65 U/L (39-117); Bilirubin,Direct < 0.2 mg/dL (0-0.3); Bilirubin,Total 0.4 mg/dL (0.1-1.0); Blood Urea Nitrogen 8 mg/dL (6-20); Calcium 8.2 mg/dL (8.6-10.4); Carbon Dioxide 23 mmol/L (22-30); Chloride 102 mmol/L (96-108); Globulin 3.2 gm/dL (2.2-3.7); Glomerular Filtration Rate 97; Glucose 152 mg/dL (70-105); Lactate Dehydrogenase 428 U/L (135-225); Phosphorous 2.3 mg/dL (2.5-4.5); Triglycerides 81 mg/dL (<150); Uric Acid 4.4 mg/dL (2.5-8.0)
[2021-05-28] MEDS: ENOXAPARIN 100 MG/ML SYRINGE SQ SCH ×2 (08:28→20:57)
[2021-05-28] MEDS: DEXAMETHASONE 10 MG/ML VIAL IV SCH (08:28)
--- NOTE | 2021-05-28 09:28 | XRay Report ---
HISTORY: Severe COVID pneumonia FINDINGS: There are moderate generalized alveolar infiltrates in both lungs with the greatest involvement in the right lower lobe. These have become worse since 05/26/21. No pleural effusion is present. The heart size is normal. IMPRESSION: Worsening bilateral pneumonia Interpreted and Authenticated by: Cam Camarillo 05/28/21
[2021-05-28] MEDS: REMDESIVIR 100 MG in 0.9 % SODIUM CHLORIDE 250 ML IV SCH (10:33)
--- NOTE | 2021-05-28 13:41 | Internal Med Progress Note ---
SUBJECTIVE Subjective Patient information: Note initiated : 05/28/21 at 1:37 pm Service Date, if different from initiated Date: [] Patient: Marlen Asif 55 y/o F admitted on 05/26/21 for cold/flu symptoms. Chief Complaint: [] Interval history: Ms. Asif is a 55 year old female with a history of Mejía's esophagus, obesity, uterine cancer, skin cancer who developed nausea, vomiting, and diarrhea on 05/22/2021 and presented to the ED where she was found to be hypoxic. Patient was started on nasal cannula oxygen supplementation, SARS-CoV-2 antigen test was positive. Hospital medicine was asked to admit patient. Patient says that she is not vaccinated, she thinks she was infected by SARS-CoV-2 by a guest at her bed and breakfast. Patient's main complaint when I saw her was diarrhea, the patient was saturating in the low 90s on room air. The patient has had a dry cough, and high-grade temperatures. CT of her chest showed bilateral subtle alveolar infiltrates. 05/27: Feels a little better today, on 2 l/min oxygen, high grade temp overnight, CRP increased mildly. Started Imodium prn for diarrhea. 05/28: Continues on 2 l/min, feels like she is improving overall, diarrhea well controlled with imodium, resolved nausea and vomiting, improved appetite. 05/29 Constitutional Vitals: Vital Signs Temp Pulse Resp BP Pulse Ox 97.0 F 68 20 124/82 95 05/28/21 11:54 05/28/21 11:54 05/28/21 11:54 05/28/21 11:54 05/28/21 11:54 Period Temp Pulse Resp BP Sys/Hurt Pulse Ox Last 24 Hr 97 F-98.3 F 60-81 16-24 107-124/64-90 90-95 Intake and Output 05/27/21 05/28/21 05/28/21 21:59 05:59 13:59 Intake Total 400 250 Output Total 500 1300 750 Balance -500 -900 -500 Weight 104.326 kg Intake & Output: Intake & Output 05/27/21 05/28/21 05/28/21 21:59 05:59 13:59 Intake Total 400 250 Output Total 500 1300 750 Balance -500 -900 -500 Weight 104.326 kg Intake: IV 250 Veklury 100 mg In Sodium 250 Chloride 0.9% 250 ml @ 500 mls/ hr IV Q24H [facility] Rx#:[id number] Oral 400 Output: Void Amount 500 1300 750 Other: Meal Dinner Percent of Meal Consumed 100% Feeding Ability Independent Urine Appearance Clear Clear Clear Urine Color Bright Yellow Bright Yellow Dark Yellow Exam: General: Alert, Awake, No acute Distress, obese Eyes/N/T: EOMI, Head/Neck: neck supple, CV: RRR, No murmurs, Pulm: Abd: soft, nontender, +BS x4 Ext: no clubbing/cyanosis/edema Neuro: Alert, no focal deficits, moves all extremities, Skin: warm/dry OBJ DATA Labs CBC & Chem 7: 05/27/21 05:25 05/28/21 05:22 Labs: Abnormal Lab Results 05/28/21 05/27/21 05/27/21 05:22 05:25 05:25 MPV 10.5 H Band Neutrophils % Lymphocytes % Reactive Lymphocytes D-Dimer Sodium 132 L Carbon Dioxide 21 L Glucose 152 H Calcium 8.2 L 7.9 L Phosphorus 2.3 L 2.4 L GGT 145 H 138 H AST 38 H 46 H ALT 42 H Lactate Dehydrogenase 428 H 349 H Total Creatine Kinase C-Reactive Protein 2.10 H 3.00 H Albumin 3.0 L 3.0 L Albumin/Globulin Ratio 0.9 L Lipase Urine Opiates Screen 05/26/21 05/26/21 05/26/21 16:30 10:40 05:50 MPV Band Neutrophils % 13 H Lymphocytes % 11 L Reactive Lymphocytes 3 H D-Dimer 3.79 H Sodium Carbon Dioxide Glucose Calcium Phosphorus GGT AST ALT Lactate Dehydrogenase Total Creatine Kinase C-Reactive Protein Albumin Albumin/Globulin Ratio Lipase Urine Opiates Screen Suspect positive A 05/26/21 05/26/21 05:49 05:49 MPV Band Neutrophils % Lymphocytes % Reactive Lymphocytes D-Dimer Sodium 131 L Carbon Dioxide 19 L Glucose 119 H Calcium 8.4 L Phosphorus GGT AST 60 H ALT 58 H Lactate Dehydrogenase Total Creatine Kinase 303 H C-Reactive Protein 2.30 H Albumin Albumin/Globulin Ratio Lipase 75 H Urine Opiates Screen Meds: Medications Acetaminophen (Acetaminophen 325 Mg Tablet) 650 mg PO Q6HP PRN; Protocol PRN Reason: Per Pain Protocol/Fever > 101 Dexamethasone (Dexamethasone 10 Mg/Ml Vial) 6 mg IV DAILY [facility] Stop: 06/05/21 08:59 Last Admin: 05/28/21 08:28 Dose: 6 mg Documented by: Enoxaparin Sodium (Enoxaparin 100 Mg/Ml Syringe) 100 mg SQ BID [facility] Last Admin: 05/28/21 08:28 Dose: 100 mg Documented by: Guaifenesin/Codeine Phosphate (Guaifenesin/Codeine 10 Ml Udc) 5 ml PO Q4HP PRN PRN Reason: Cough Last Admin: 05/27/21 11:17 Dose: 5 ml Documented by: REMDESIVIR 100 mg/ Sodium (Chloride) 250 mls @ 500 mls/hr IV Q24H [facility] Stop: 05/30/21 10:29 Last Infusion: 05/28/21 11:45 Dose: Infused Documented by: Loperamide HCl (Loperamide 2 Mg Capsule) 2 mg PO PRN PRN PRN Reason: Diarrhea Last Admin: 05/26/21 21:18 Dose: 2 mg Documented by: Ondansetron HCl (Ondansetron 4 Mg/2 Ml Vial) 4 mg IV Q6HP PRN PRN Reason: Nausea And Vomiting Senna (Sennosides 1 Tablet) 2 tab PO HS [facility] Last Admin: 05/27/21 21:22 Dose: Not Given Documented by: Sodium Chloride (0.9 % Sodium Chloride 10 Ml Syringe) 10 ml IV Q8 [facility] Last Admin: 05/28/21 04:39 Dose: 10 ml Documented by: A/P Narrative A/P Narrative: A: #Acute hypoxic respiratory failure: -on 2L NC #Severe COVID-19 pneumonia: #Nausea, vomiting, diarrhea: likely d/t COVID-19 #Mejía's esophagus #Obesity: BMI 33 Plan: -Dexamethasone and Remdesivir -Oxygen supplementation as needed. -proning/mobilzation/oob to chair -Daily labs, CRP. -Zofran prn. -Imodium prn. -Essential home medications. -DVT ppx: Therapeutic lovenox BID while inpatiet (per ACTIV-4a trial data). Code status: Mold Mover Spent With Patient Time: Total time spent is greater than 50% in coordination of care (as documented) at patient's floor/unit and/or counseling patient:
--- NOTE | 2021-05-28 13:42 | Discharge Summary ---
Discharge Provider Provider Patient information: Note initiated : 05/28/21 at 1:41 pm Service Date, if different from initiated Date: [] Patient: Marlen Asif 55 y/o F admitted on 05/26/21 for cold/flu symptoms. Chief Complaint: [] Date of admission: 05/26/21 09:53 Discharge date: 06/01/21 Primary care physician: Jade Morton Consults: 05/26/21 Consult to Physician [CONS] Stat Comment: Consulting Provider: Jaime Skinner Reason For Exam: Physician to Consult Discharge Meds Discharge Medications Home Medications omeprazole 20 mg PO DAILYP PRN 05/28/21 [History Confirmed 05/28/21 Last Taken Unknown] COURSE Hospital Course Hospital course: Interval history: Ms. Asif is a 55 year old female with a history of Mejía's esophagus, obesity, uterine cancer, skin cancer who developed nausea, vomiting, and diarrhea on 05/22/2021 and presented to the ED where she was found to be hypoxic. Patient was started on nasal cannula oxygen supplementation, SARS-CoV-2 antigen test was positive. Hospital medicine was asked to admit patient. Patient says that she is not vaccinated, she thinks she was infected by SARS-CoV-2 by a guest at her bed and breakfast. Patient's main complaint when I saw her was diarrhea, the patient was saturating in the low 90s on room air. The patient has had a dry cough, and high-grade temperatures. CT of her chest showed bilateral subtle alveolar infiltrates. 05/27: Feels a little better today, on 2 l/min oxygen, high grade temp overnight, CRP increased mildly. Started Imodium prn for diarrhea. 05/28: Continues on 2 l/min, feels like she is improving overall, diarrhea well controlled with imodium, resolved nausea and vomiting, improved appetite. 05/29 Patient has productive cough of yellow-white sputum. She denies shortness of breath at rest but gets short of breath with movement. She was placed back on oxygen last night and was at 4 to 5 L. 05/30 Patient feels like she can move around a little bit better without becoming has severely short of breath. Has a cough. Dropped to 3 L nasal cannula. Slight bump in liver enzymes. 05/31 Was on 4 to 5 L overnight. Currently on 3 L with sats around 90. Patient continues to feel better and breathing easier. Does have a cough. Patient having a hard time with that twice daily Lovenox due to pain on injection site. 06/01 Continues to gradually improve. She is on 3.5 L nasal cannula. She will desat some with exertion but does recover quickly. Patient with cough. Hoping to go home. A/P Narrative: A: #Acute hypoxic respiratory failure: #Severe COVID-19 pneumonia w/ARDS: #Nausea, vomiting, diarrhea: likely d/t COVID-19 #Mejía's esophagus / GERD: #Obesity: BMI 33 Discharge diagnosis: Acute hypoxic respite failure Covid pneumonia nausea vomiting diarrhea Secondary discharge diagnosis: BCT Mejía's esophagus Time Spent with Patient Time attestation: Total time spent providing and/or coordinating discharge services: Time spent: Greater than 30 minutes EXAM Constitutional Vitals: Temp Pulse Resp BP Pulse Ox 97.0 F 68 20 124/82 95 05/28/21 11:54 05/28/21 11:54 05/28/21 11:54 05/28/21 11:54 05/28/21 11:54 Discharge Data Data Completed and Pending Labs on day of discharge: Labs from last 24 hours 05/28/21 05:22 Sodium 138 Potassium 3.8 Chloride 102 Carbon Dioxide 23 Anion Gap 13.0 BUN 8 Creatinine 0.7 GFR Calculation 97 Glucose 152 H Uric Acid 4.4 Calcium 8.2 L Phosphorus 2.3 L Magnesium 2.5 Total Bilirubin 0.4 Direct Bilirubin < 0.2 GGT 145 H AST 38 H ALT 36 Alkaline Phosphatase 65 Lactate Dehydrogenase 428 H C-Reactive Protein 2.10 H Total Protein 6.2 Albumin 3.0 L Globulin 3.2 Albumin/Globulin Ratio 0.9 L Triglycerides 81 Preliminary micro results at discharge 05/26/21 05:45 Blood Culture - Preliminary Blood 05/26/21 05:35 Blood Culture - Preliminary Blood Discharge Plan Patient/Caregiver Discharge Instructions Activity: increase activity as tolerated Diet: Regular Diet Activity Restrictions/Additional Instructions: Patient will need home oxygen for Covid pneumonia Prescriptions: Continued omeprazole 20 mg PO DAILYP PRN (Reason: Acid Reflux) RF: 0 Follow Up Plan Follow up with: Jade Morton DNP, [facility] CONSULTANT [Primary Care Provider] - Patient Disposition: Home, Self-Care Prognosis: Fair Overall status at discharge: patient is progressing back to baseline Discharge Orders: Discharge Order (Routine); Ordered 06/01/21 Ordered By: Vivek Hooks
[2021-05-28] MEDS: LOPERAMIDE 2 MG CAPSULE PO PRN ×2 (13:47→20:57)
[2021-05-28] MEDS ORDERED: PANTOPRAZOLE 40 MG PACKET PO PRN (14:22)
[2021-05-28] MEDS: guaiFENesin/CODEINE 10 ML UDC PO PRN (20:57)
[2021-05-28] MEDS: SENNOSIDES 1 TABLET PO SCH (20:59)
--- NOTE | 2021-05-29 07:45 | Internal Med Progress Note ---
SUBJECTIVE Subjective Patient information: Note initiated : 05/29/21 at 7:40 am Service Date, if different from initiated Date: [] Patient: Marlen Asif 55 y/o F admitted on 05/26/21 for cold/flu symptoms. Chief Complaint: [] Interval history: Ms. Asif is a 55 year old female with a history of Mejía's esophagus, obesity, uterine cancer, skin cancer who developed nausea, vomiting, and diarrhea on 05/22/2021 and presented to the ED where she was found to be hypoxic. Patient was started on nasal cannula oxygen supplementation, SARS-CoV-2 antigen test was positive. Hospital medicine was asked to admit patient. Patient says that she is not vaccinated, she thinks she was infected by SARS-CoV-2 by a guest at her bed and breakfast. Patient's main complaint when I saw her was diarrhea, the patient was saturating in the low 90s on room air. The patient has had a dry cough, and high-grade temperatures. CT of her chest showed bilateral subtle alveolar infiltrates. 05/27: Feels a little better today, on 2 l/min oxygen, high grade temp overnight, CRP increased mildly. Started Imodium prn for diarrhea. 05/28: Continues on 2 l/min, feels like she is improving overall, diarrhea well controlled with imodium, resolved nausea and vomiting, improved appetite. 05/29 Patient has productive cough of yellow-white sputum. She denies shortness of breath at rest but gets short of breath with movement. She was placed back on oxygen last night and was at 4 to 5 L. Review of Systems: denies headache/fever/chills/nausea/vomiting/chest or abdominal pain//diarrhea. Otherwise see above. Constitutional Vitals: Vital Signs Temp Pulse Resp BP Pulse Ox 97.2 F 60 28 H 128/74 86 L 05/29/21 04:41 05/29/21 04:41 05/29/21 04:41 05/29/21 04:41 05/29/21 04:41 Period Temp Pulse Resp BP Sys/Hurt Pulse Ox Last 24 Hr 97.0 F-97.8 F 60-90 16-28 112-138/70-84 84-95 Intake and Output 05/28/21 05/29/21 05/29/21 21:59 05:59 13:59 Intake Total 2100 540 Output Total 300 1050 Balance 1800 -510 Weight 105.37 kg Intake & Output: Intake & Output 05/28/21 05/29/21 05/29/21 21:59 05:59 13:59 Intake Total 2100 540 Output Total 300 1050 Balance 1800 -510 Weight 105.37 kg Intake: Oral 2100 540 Output: Void Amount 300 1050 Other: Urine Appearance Clear Cloudy Urine Color Bright Yellow Straw Stool Size Small Stool Color Brown Stool Consistency Loose # Voids 1 # Bowel Movements 2 Exam: General: Alert, Awake, No acute Distress, obese Eyes/N/T: EOMI, Head/Neck: neck supple, CV: RRR, No murmurs, Pulm: Mild rales/rhonchi b/l Abd: soft, nontender, +BS x4 Ext: no clubbing/cyanosis, 1+ b/l LE edema Neuro: Alert, no focal deficits, moves all extremities, Skin: warm/dry OBJ DATA Labs CBC & Chem 7: 05/27/21 05:25 05/28/21 05:22 Labs: Abnormal Lab Results 05/28/21 05/27/21 05/27/21 05:22 05:25 05:25 MPV 10.5 H Band Neutrophils % Lymphocytes % Reactive Lymphocytes D-Dimer Sodium 132 L Carbon Dioxide 21 L Glucose 152 H Calcium 8.2 L 7.9 L Phosphorus 2.3 L 2.4 L GGT 145 H 138 H AST 38 H 46 H ALT 42 H Lactate Dehydrogenase 428 H 349 H C-Reactive Protein 2.10 H 3.00 H Albumin 3.0 L 3.0 L Albumin/Globulin Ratio 0.9 L Urine Opiates Screen 05/26/21 05/26/21 05/26/21 16:30 10:40 05:50 MPV Band Neutrophils % 13 H Lymphocytes % 11 L Reactive Lymphocytes 3 H D-Dimer 3.79 H Sodium Carbon Dioxide Glucose Calcium Phosphorus GGT AST ALT Lactate Dehydrogenase C-Reactive Protein Albumin Albumin/Globulin Ratio Urine Opiates Screen Suspect positive A 05/26/21 05:49 MPV Band Neutrophils % Lymphocytes % Reactive Lymphocytes D-Dimer Sodium Carbon Dioxide Glucose Calcium Phosphorus GGT AST ALT Lactate Dehydrogenase C-Reactive Protein 2.30 H Albumin Albumin/Globulin Ratio Urine Opiates Screen Meds: Medications Acetaminophen (Acetaminophen 325 Mg Tablet) 650 mg PO Q6HP PRN; Protocol PRN Reason: Per Pain Protocol/Fever > 101 Dexamethasone (Dexamethasone 10 Mg/Ml Vial) 6 mg IV DAILY [facility] Stop: 06/05/21 08:59 Last Admin: 05/28/21 08:28 Dose: 6 mg Documented by: Enoxaparin Sodium (Enoxaparin 100 Mg/Ml Syringe) 100 mg SQ BID [facility] Last Admin: 05/28/21 20:57 Dose: 100 mg Documented by: Guaifenesin/Codeine Phosphate (Guaifenesin/Codeine 10 Ml Udc) 5 ml PO Q4HP PRN PRN Reason: Cough Last Admin: 05/28/21 20:57 Dose: 5 ml Documented by: REMDESIVIR 100 mg/ Sodium (Chloride) 250 mls @ 200 mls/hr IV Q24H [facility] Stop: 05/30/21 12:14 Loperamide HCl (Loperamide 2 Mg Capsule) 2 mg PO PRN PRN PRN Reason: Diarrhea Last Admin: 05/28/21 20:57 Dose: 2 mg Documented by: Ondansetron HCl (Ondansetron 4 Mg/2 Ml Vial) 4 mg IV Q6HP PRN PRN Reason: Nausea And Vomiting Pantoprazole Sodium (Pantoprazole 40 Mg Packet) 40 mg PO DAILYP PRN PRN Reason: acid reflux Last Admin: 05/28/21 14:51 Dose: 40 mg Documented by: Senna (Sennosides 1 Tablet) 2 tab PO HS [facility] Last Admin: 05/28/21 20:59 Dose: Not Given Documented by: Sodium Chloride (0.9 % Sodium Chloride 10 Ml Syringe) 10 ml IV Q8 [facility] Last Admin: 05/28/21 20:59 Dose: 10 ml Documented by: A/P Narrative A/P Narrative: A: #Acute hypoxic respiratory failure: -O2 need increased to 4-5L NC o/n #Severe COVID-19 pneumonia: #Nausea, vomiting, diarrhea: likely d/t COVID-19 #Mejía's esophagus / GERD: #Obesity: BMI 33 Plan: -Dexamethasone and Remdesivir -Oxygen supplementation as needed, wean as able -proning/mobilization/oob to chair -Imodium prn. 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
[2021-05-29] MEDS ORDERED: ALBUMIN HUMAN 12.5 GM/50 ML BAG IV ONE (08:29)
[2021-05-29] MEDS ORDERED: FUROSEMIDE 40 MG/4 ML VIAL IV ONE (08:29)
[2021-05-29] MEDS: 0.9 % SODIUM CHLORIDE 10 ML SYRINGE IV SCH ×3 (08:57→20:52)
[2021-05-29] MEDS: DEXAMETHASONE 10 MG/ML VIAL IV SCH (08:58)
[2021-05-29] MEDS: PANTOPRAZOLE 40 MG PACKET PO SCH (08:58)
[2021-05-29] MEDS: ENOXAPARIN 100 MG/ML SYRINGE SQ SCH ×2 (08:59→20:51)
[2021-05-29 12:34] LABS: ALT/SGPT 39 U/L (<40); AST/SGOT 41 U/L (<32); Albumin 3.6 gm/dL (3.2-5.2); Albumin/Globulin Ratio 1.1 (1.0-2.3); Alkaline Phosphatase 69 U/L (39-117); Bilirubin,Direct < 0.2 mg/dL (0-0.3); Bilirubin,Total 0.6 mg/dL (0.1-1.0); Blood Urea Nitrogen 9 mg/dL (6-20); Calcium 8.8 mg/dL (8.6-10.4); Carbon Dioxide 26 mmol/L (22-30); Chloride 99 mmol/L (96-108); Globulin 3.2 gm/dL (2.2-3.7); Glomerular Filtration Rate 97; Glucose 116 mg/dL (70-105); Lactate Dehydrogenase 457 U/L (135-225); Phosphorous 2.5 mg/dL (2.5-4.5); Triglycerides 102 mg/dL (<150); Uric Acid 3.9 mg/dL (2.5-8.0)
[2021-05-29 12:35] LABS: Basophils # (Auto) 0.02 K/mcL (0.00-0.30); Basophils % (Auto) 0.2 % (0.0-2.0); Eosinophils # (Auto) 0 K/mcL (0.00-0.70); Eosinophils % (Auto) 0 % (0.0-7.0); Hematocrit 43.1 % (34.1-44.9); Hemoglobin 14.4 g/dL (11.2-15.7); Lymphocytes # (Auto) 2.14 K/mcL (1.50-4.80); Lymphocytes % (Auto) 21.4 % (15.5-49.0); Mean Cell Volume 94.1 fL (80.0-100.0); Mean Corpuscular HGB Conc 33.4 g/dL (31.0-36.0); Mean Platelet Volume 10.1 fL (7.4-10.4); Monocytes # (Auto) 0.73 K/mcL (0.10-0.90); Monocytes % (Auto) 7.3 % (1.0-12.0); Neutrophils % (Auto) 71.1 % (38.0-78.0); Platelet Count 302 K/mcL (140-440); RBC 4.58 M/mcL (3.59-5.38); Red Cell Distribution Width 12.7 % (11.5-14.5)
[2021-05-29] MEDS: REMDESIVIR 100 MG in 0.9 % SODIUM CHLORIDE 250 ML IV SCH (14:22)
[2021-05-29] MEDS: SENNOSIDES 1 TABLET PO SCH (20:51)
[2021-05-30] MEDS: 0.9 % SODIUM CHLORIDE 10 ML SYRINGE IV SCH ×3 (04:55→21:45)
[2021-05-30 06:00] LABS: POC Blood Urea Nitrogen 10 mg/dL (6-20); POC CO2 28 mmol/L (22-30); POC Calcium, Ionized 0.97 mmEq/L (1.16-1.32); POC Chloride 95 mEq/L (96-108); POC Creatinine 0.6 mg/dL (0.6-1.2); POC Glucose, Random 129 mg/dL (70-105); POC Hematocrit 39 % (36-48); POC Potassium 3.3 mEql/L (3.3-5.1); POC Sodium 138 mEq/L (133-145)
--- NOTE | 2021-05-30 08:22 | Internal Med Progress Note ---
SUBJECTIVE Subjective Patient information: Note initiated : 05/30/21 at 8:18 am Service Date, if different from initiated Date: [] Patient: Marlen Asif 55 y/o F admitted on 05/26/21 for cold/flu symptoms. Chief Complaint: [] Interval history: Ms. Asif is a 55 year old female with a history of Mejía's esophagus, obesity, uterine cancer, skin cancer who developed nausea, vomiting, and diarrhea on 05/22/2021 and presented to the ED where she was found to be hypoxic. Patient was started on nasal cannula oxygen supplementation, SARS-CoV-2 antigen test was positive. Hospital medicine was asked to admit patient. Patient says that she is not vaccinated, she thinks she was infected by SARS-CoV-2 by a guest at her bed and breakfast. Patient's main complaint when I saw her was diarrhea, the patient was saturating in the low 90s on room air. The patient has had a dry cough, and high-grade temperatures. CT of her chest showed bilateral subtle alveolar infiltrates. 05/27: Feels a little better today, on 2 l/min oxygen, high grade temp overnight, CRP increased mildly. Started Imodium prn for diarrhea. 05/28: Continues on 2 l/min, feels like she is improving overall, diarrhea well controlled with imodium, resolved nausea and vomiting, improved appetite. 05/29 Patient has productive cough of yellow-white sputum. She denies shortness of breath at rest but gets short of breath with movement. She was placed back on oxygen last night and was at 4 to 5 L. 05/30 Patient feels like she can move around a little bit better without becoming has severely short of breath. Has a cough. Dropped to 3 L nasal cannula. Slight bump in liver enzymes. Review of Systems: denies headache/fever/chills/nausea/vomiting/chest or abdominal pain//diarrhea. Otherwise see above. Constitutional Vitals: Vital Signs Temp Pulse Resp BP Pulse Ox 97.3 F 68 18 104/66 91 05/30/21 07:53 05/30/21 07:53 05/30/21 07:53 05/30/21 07:53 05/30/21 07:53 Period Temp Pulse Resp BP Sys/Hurt Pulse Ox Last 24 Hr 96.7 F-98 F 55-85 18-20 104-134/66-76 91-95 Intake and Output 05/29/21 05/30/21 05/30/21 21:59 05:59 13:59 Intake Total 1550 500 Output Total 500 200 Balance 1050 300 Weight 103.589 kg Intake & Output: Intake & Output 05/29/21 05/30/21 05/30/21 21:59 05:59 13:59 Intake Total 1550 500 Output Total 500 200 Balance 1050 300 Weight 103.589 kg Intake: IV 250 Veklury 100 mg In Sodium 250 Chloride 0.9% 250 ml @ 200 mls/ hr IV Q24H [facility] Rx#:[id number] Oral 500 500 GI Tube Flush 800 Output: Void Amount 500 200 Other: Meal Dinner Percent of Meal Consumed 75% Feeding Ability Independent Urine Appearance Clear Urine Color Pale Urine Odor Normal # Voids 1 2 Exam: General: Alert, Awake, No acute Distress, obese Eyes/N/T: EOMI, Head/Neck: neck supple, CV: RRR, No murmurs, Pulm: Mild rales/rhonchi b/l improving Abd: soft, nontender, +BS x4 Ext: no clubbing/cyanosis, 1+ b/l LE edema Neuro: Alert, no focal deficits, moves all extremities, Skin: warm/dry OBJ DATA Labs CBC & Chem 7: 05/29/21 11:42 05/29/21 11:35 Labs: Abnormal Lab Results 05/30/21 05/29/21 05/29/21 05:51 11:41 11:35 Sodium POC Chloride 95 L Carbon Dioxide Glucose 116 H POC Glucose 129 H Calcium POC WB Ioniz Calcium 0.97 L Phosphorus GGT 164 H AST 41 H ALT Lactate Dehydrogenase 457 H C-Reactive Protein 1.00 H Albumin Albumin/Globulin Ratio 05/28/21 05/27/21 05:22 05:25 Sodium 132 L POC Chloride Carbon Dioxide 21 L Glucose 152 H POC Glucose Calcium 8.2 L 7.9 L POC WB Ioniz Calcium Phosphorus 2.3 L 2.4 L GGT 145 H 138 H AST 38 H 46 H ALT 42 H Lactate Dehydrogenase 428 H 349 H C-Reactive Protein 2.10 H 3.00 H Albumin 3.0 L 3.0 L Albumin/Globulin Ratio 0.9 L Meds: Medications Acetaminophen (Acetaminophen 325 Mg Tablet) 650 mg PO Q6HP PRN; Protocol PRN Reason: Per Pain Protocol/Fever > 101 Dexamethasone (Dexamethasone 10 Mg/Ml Vial) 6 mg IV DAILY [facility] Stop: 06/05/21 08:59 Last Admin: 05/29/21 08:58 Dose: 6 mg Documented by: Enoxaparin Sodium (Enoxaparin 100 Mg/Ml Syringe) 100 mg SQ BID [facility] Last Admin: 05/29/21 20:51 Dose: 100 mg Documented by: Guaifenesin/Codeine Phosphate (Guaifenesin/Codeine 10 Ml Udc) 5 ml PO Q4HP PRN PRN Reason: Cough Last Admin: 05/28/21 20:57 Dose: 5 ml Documented by: REMDESIVIR 100 mg/ Sodium (Chloride) 250 mls @ 200 mls/hr IV Q24H [facility] Stop: 05/30/21 12:14 Last Infusion: 05/29/21 16:38 Dose: Infused Documented by: Loperamide HCl (Loperamide 2 Mg Capsule) 2 mg PO PRN PRN PRN Reason: Diarrhea Last Admin: 05/28/21 20:57 Dose: 2 mg Documented by: Ondansetron HCl (Ondansetron 4 Mg/2 Ml Vial) 4 mg IV Q6HP PRN PRN Reason: Nausea And Vomiting Pantoprazole Sodium (Pantoprazole 40 Mg Packet) 40 mg PO QAMAC [facility] Last Admin: 05/29/21 08:58 Dose: 40 mg Documented by: Senna (Sennosides 1 Tablet) 2 tab PO HS [facility] Last Admin: 05/29/21 20:51 Dose: Not Given Documented by: Sodium Chloride (0.9 % Sodium Chloride 10 Ml Syringe) 10 ml IV Q8 [facility] Last Admin: 05/30/21 04:55 Dose: 10 ml Documented by: A/P Narrative A/P Narrative: A: #Acute hypoxic respiratory failure: -on5L oxymask #Severe COVID-19 pneumonia w/ARDS: -CRP improving #Nausea, vomiting, diarrhea: likely d/t COVID-19 #Mejía's esophagus / GERD: #Obesity: BMI 33 Plan: -Dexamethasone and Remdesivir -Oxygen supplementation as needed, wean as able -proning/mobilization/oob to chair -Imodium prn. 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
[2021-05-30] MEDS: ENOXAPARIN 100 MG/ML SYRINGE SQ SCH ×2 (08:31→21:42)
[2021-05-30] MEDS: DEXAMETHASONE 10 MG/ML VIAL IV SCH (08:31)
[2021-05-30] MEDS: PANTOPRAZOLE 40 MG PACKET PO SCH (08:31)
[2021-05-30 08:51] LABS: ALT/SGPT 50 U/L (<40); AST/SGOT 54 U/L (<32); Alkaline Phosphatase 64 U/L (39-117)
[2021-05-30] MEDS ORDERED: FUROSEMIDE 40 MG/4 ML VIAL IV ONE (09:25)
[2021-05-30] MEDS: REMDESIVIR 100 MG in 0.9 % SODIUM CHLORIDE 250 ML IV SCH (11:46)
[2021-05-30] MEDS: SENNOSIDES 1 TABLET PO SCH (21:45)
[2021-05-31] MEDS: 0.9 % SODIUM CHLORIDE 10 ML SYRINGE IV SCH ×3 (05:20→21:00)
[2021-05-31 07:17] LABS: ALT/SGPT 46 U/L (<40); AST/SGOT 34 U/L (<32); Albumin 3.2 gm/dL (3.2-5.2); Alkaline Phosphatase 69 U/L (39-117); Bilirubin,Direct < 0.2 mg/dL (0-0.3); Bilirubin,Total 0.5 mg/dL (0.1-1.0); Blood Urea Nitrogen 13 mg/dL (6-20); Calcium 8.5 mg/dL (8.6-10.4); Carbon Dioxide 28 mmol/L (22-30); Chloride 95 mmol/L (96-108); Globulin 3.3 gm/dL (2.2-3.7); Glomerular Filtration Rate 97; Glucose 135 mg/dL (70-105); Lactate Dehydrogenase 399 U/L (135-225); Triglycerides 122 mg/dL (<150); Uric Acid 4.3 mg/dL (2.5-8.0)
--- NOTE | 2021-05-31 07:55 | Internal Med Progress Note ---
SUBJECTIVE Subjective Patient information: Note initiated : 05/31/21 at 7:52 am Service Date, if different from initiated Date: [] Patient: Marlen Asif 55 y/o F admitted on 05/26/21 for cold/flu symptoms. Chief Complaint: [] Interval history: Ms. Asif is a 55 year old female with a history of Mejía's esophagus, obesity, uterine cancer, skin cancer who developed nausea, vomiting, and diarrhea on 05/22/2021 and presented to the ED where she was found to be hypoxic. Patient was started on nasal cannula oxygen supplementation, SARS-CoV-2 antigen test was positive. Hospital medicine was asked to admit patient. Patient says that she is not vaccinated, she thinks she was infected by SARS-CoV-2 by a guest at her bed and breakfast. Patient's main complaint when I saw her was diarrhea, the patient was saturating in the low 90s on room air. The patient has had a dry cough, and high-grade temperatures. CT of her chest showed bilateral subtle alveolar infiltrates. 05/27: Feels a little better today, on 2 l/min oxygen, high grade temp overnight, CRP increased mildly. Started Imodium prn for diarrhea. 05/28: Continues on 2 l/min, feels like she is improving overall, diarrhea well controlled with imodium, resolved nausea and vomiting, improved appetite. 05/29 Patient has productive cough of yellow-white sputum. She denies shortness of breath at rest but gets short of breath with movement. She was placed back on oxygen last night and was at 4 to 5 L. 05/30 Patient feels like she can move around a little bit better without becoming has severely short of breath. Has a cough. Dropped to 3 L nasal cannula. Slight bump in liver enzymes. 05/31 Was on 4 to 5 L overnight. Currently on 3 L with sats around 90. Patient continues to feel better and breathing easier. Does have a cough. Patient having a hard time with that twice daily Lovenox due to pain on injection site. Review of Systems: denies headache/fever/chills/nausea/vomiting/chest or abdominal pain//diarrhea. Otherwise see above. Constitutional Vitals: Vital Signs Temp Pulse Resp BP Pulse Ox 97.2 F 62 14 114/68 92 05/31/21 04:00 05/31/21 04:00 05/31/21 04:00 05/31/21 04:00 05/31/21 04:00 Period Temp Pulse Resp BP Sys/Hurt Pulse Ox Last 24 Hr 96.7 F-97.4 F 62-74 14-18 104-146/59-80 88-96 Intake and Output 05/30/21 05/31/21 05/31/21 21:59 05:59 13:59 Intake Total 400 Balance 400 Weight 102.285 kg Intake & Output: Intake & Output 05/30/21 05/31/21 05/31/21 21:59 05:59 13:59 Intake Total 400 Balance 400 Weight 102.285 kg Intake: Oral 400 Other: Urine Appearance Clear # Voids 3 2 Exam: General: Alert, Awake, No acute Distress, obese Eyes/N/T: EOMI, Head/Neck: neck supple, CV: RRR, No murmurs, Pulm: Mild rales/rhonchi b/l continue to improve Abd: soft, nontender, +BS x4 Ext: no clubbing/cyanosis, trace b/l LE edema Neuro: Alert, no focal deficits, moves all extremities, Skin: warm/dry OBJ DATA Labs CBC & Chem 7: 05/29/21 11:42 05/31/21 05:34 Labs: Abnormal Lab Results 05/31/21 05/30/21 05/29/21 05:34 05:51 11:41 POC Chloride 95 L Chloride 95 L Glucose 135 H POC Glucose 129 H Calcium 8.5 L POC WB Ioniz Calcium 0.97 L Phosphorus GGT 181 H AST 34 H 54 H ALT 46 H 50 H Lactate Dehydrogenase 399 H C-Reactive Protein 1.00 H Albumin Albumin/Globulin Ratio 05/29/21 05/28/21 11:35 05:22 POC Chloride Chloride Glucose 116 H 152 H POC Glucose Calcium 8.2 L POC WB Ioniz Calcium Phosphorus 2.3 L GGT 164 H 145 H AST 41 H 38 H ALT Lactate Dehydrogenase 457 H 428 H C-Reactive Protein 2.10 H Albumin 3.0 L Albumin/Globulin Ratio 0.9 L Meds: Medications Acetaminophen (Acetaminophen 325 Mg Tablet) 650 mg PO Q6HP PRN; Protocol PRN Reason: Per Pain Protocol/Fever > 101 Dexamethasone (Dexamethasone 10 Mg/Ml Vial) 6 mg PO DAILY [facility] Stop: 06/09/21 08:59 Enoxaparin Sodium (Enoxaparin 100 Mg/Ml Syringe) 100 mg SQ BID [facility] Last Admin: 05/30/21 21:42 Dose: 100 mg Documented by: Guaifenesin/Codeine Phosphate (Guaifenesin/Codeine 10 Ml Udc) 5 ml PO Q4HP PRN PRN Reason: Cough Last Admin: 05/28/21 20:57 Dose: 5 ml Documented by: Loperamide HCl (Loperamide 2 Mg Capsule) 2 mg PO PRN PRN PRN Reason: Diarrhea Last Admin: 05/28/21 20:57 Dose: 2 mg Documented by: Ondansetron HCl (Ondansetron 4 Mg/2 Ml Vial) 4 mg IV Q6HP PRN PRN Reason: Nausea And Vomiting Pantoprazole Sodium (Pantoprazole 40 Mg Packet) 40 mg PO QAMAC [facility] Last Admin: 05/30/21 08:31 Dose: 40 mg Documented by: Senna (Sennosides 1 Tablet) 2 tab PO HS [facility] Last Admin: 05/30/21 21:45 Dose: Not Given Documented by: Sodium Chloride (0.9 % Sodium Chloride 10 Ml Syringe) 10 ml IV Q8 [facility] Last Admin: 05/31/21 05:20 Dose: 10 ml Documented by: A/P Narrative A/P Narrative: A: #Acute hypoxic respiratory failure: -on 3-5L oxymask, desats with exertion to 88 but quickly recovers #Severe COVID-19 pneumonia w/ARDS: -CRP improving #Nausea, vomiting, diarrhea: likely d/t COVID-19 #Mejía's esophagus / GERD: #Obesity: BMI 33 Plan: -Dexamethasone and Remdesivir (finished) -Oxygen supplementation as needed, wean as able -proning/mobilization/oob to chair -Imodium prn. 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
[2021-05-31] MEDS: DEXAMETHASONE 10 MG/ML VIAL PO SCH (08:29)
[2021-05-31] MEDS: ENOXAPARIN 100 MG/ML SYRINGE SQ SCH (08:29)
[2021-05-31] MEDS: PANTOPRAZOLE 40 MG PACKET PO SCH (08:30)
[2021-05-31] MEDS ORDERED: FUROSEMIDE 40 MG/4 ML VIAL IV ONE (09:21)
[2021-05-31] MEDS: SENNOSIDES 1 TABLET PO SCH (21:00)
[2021-05-31] MEDS: ENOXAPARIN 40 MG/0.4 ML SYRINGE SQ SCH (21:00)
[2021-06-01] MEDS: 0.9 % SODIUM CHLORIDE 10 ML SYRINGE IV SCH ×2 (04:27→15:07)
--- NOTE | 2021-06-01 07:54 | Internal Med Progress Note ---
SUBJECTIVE Subjective Patient information: Note initiated : 06/01/21 at 7:52 am Service Date, if different from initiated Date: [] Patient: Marlen Asif 55 y/o F admitted on 05/26/21 for cold/flu symptoms. Chief Complaint: [] Interval history: Ms. Asif is a 55 year old female with a history of Mejía's esophagus, obesity, uterine cancer, skin cancer who developed nausea, vomiting, and diarrhea on 05/22/2021 and presented to the ED where she was found to be hypoxic. Patient was started on nasal cannula oxygen supplementation, SARS-CoV-2 antigen test was positive. Hospital medicine was asked to admit patient. Patient says that she is not vaccinated, she thinks she was infected by SARS-CoV-2 by a guest at her bed and breakfast. Patient's main complaint when I saw her was diarrhea, the patient was saturating in the low 90s on room air. The patient has had a dry cough, and high-grade temperatures. CT of her chest showed bilateral subtle alveolar infiltrates. 05/27: Feels a little better today, on 2 l/min oxygen, high grade temp overnight, CRP increased mildly. Started Imodium prn for diarrhea. 05/28: Continues on 2 l/min, feels like she is improving overall, diarrhea well controlled with imodium, resolved nausea and vomiting, improved appetite. 05/29 Patient has productive cough of yellow-white sputum. She denies shortness of breath at rest but gets short of breath with movement. She was placed back on oxygen last night and was at 4 to 5 L. 05/30 Patient feels like she can move around a little bit better without becoming has severely short of breath. Has a cough. Dropped to 3 L nasal cannula. Slight bump in liver enzymes. 05/31 Was on 4 to 5 L overnight. Currently on 3 L with sats around 90. Patient continues to feel better and breathing easier. Does have a cough. Patient having a hard time with that twice daily Lovenox due to pain on injection site. 06/01 Continues to gradually improve. She is on 3.5 L nasal cannula. She will desat some with exertion but does recover quickly. Patient with cough. Hoping to go home. Review of Systems: denies headache/fever/chills/nausea/vomiting/chest or abdominal pain//diarrhea. Otherwise see above. Constitutional Vitals: Vital Signs Temp Pulse Resp BP Pulse Ox 96 F L 55 L 16 129/85 94 06/01/21 04:00 06/01/21 04:00 06/01/21 04:00 06/01/21 04:00 06/01/21 04:00 Period Temp Pulse Resp BP Sys/Hurt Pulse Ox Last 24 Hr 96 F-98.2 F 55-84 16-18 115-135/59-85 89-94 Intake and Output 05/31/21 06/01/21 06/01/21 21:59 05:59 13:59 Intake Total 1040 Output Total 500 Balance 540 Weight 101.746 kg Intake & Output: Intake & Output 05/31/21 06/01/21 06/01/21 21:59 05:59 13:59 Intake Total 1040 Output Total 500 Balance 540 Weight 101.746 kg Intake: Oral 1040 Output: Void Amount 500 Other: Meal snack Percent of Meal Consumed 100% Feeding Ability Independent Urine Appearance Clear Urine Color Bright Yellow Stool Size Large Stool Consistency Normal for Patient # Voids 1 1 # Bowel Movements 1 Exam: General: Alert, Awake, No acute Distress, obese Eyes/N/T: EOMI, Head/Neck: neck supple, CV: RRR, No murmurs, Pulm: minimal rales b/l, no wheezing Abd: soft, nontender, +BS x4 Ext: no clubbing/cyanosis, trace b/l LE edema Neuro: Alert, no focal deficits, moves all extremities, Skin: warm/dry OBJ DATA Labs CBC & Chem 7: 05/29/21 11:42 05/31/21 05:34 Labs: Abnormal Lab Results 05/31/21 05/30/21 05/29/21 05:34 05:51 11:41 POC Chloride 95 L Chloride 95 L Glucose 135 H POC Glucose 129 H Calcium 8.5 L POC WB Ioniz Calcium 0.97 L GGT 181 H AST 34 H 54 H ALT 46 H 50 H Lactate Dehydrogenase 399 H C-Reactive Protein 1.00 H 05/29/21 11:35 POC Chloride Chloride Glucose 116 H POC Glucose Calcium POC WB Ioniz Calcium GGT 164 H AST 41 H ALT Lactate Dehydrogenase 457 H C-Reactive Protein Meds: Medications Acetaminophen (Acetaminophen 325 Mg Tablet) 650 mg PO Q6HP PRN; Protocol PRN Reason: Per Pain Protocol/Fever > 101 Dexamethasone (Dexamethasone 10 Mg/Ml Vial) 6 mg PO DAILY [facility] Stop: 06/09/21 08:59 Last Admin: 05/31/21 08:29 Dose: 6 mg Documented by: Enoxaparin Sodium (Enoxaparin 40 Mg/0.4 Ml Syringe) 40 mg SQ BID [facility] Last Admin: 05/31/21 21:00 Dose: Not Given Documented by: Guaifenesin/Codeine Phosphate (Guaifenesin/Codeine 10 Ml Udc) 5 ml PO Q4HP PRN PRN Reason: Cough Last Admin: 05/28/21 20:57 Dose: 5 ml Documented by: Loperamide HCl (Loperamide 2 Mg Capsule) 2 mg PO PRN PRN PRN Reason: Diarrhea Last Admin: 05/28/21 20:57 Dose: 2 mg Documented by: Ondansetron HCl (Ondansetron 4 Mg/2 Ml Vial) 4 mg IV Q6HP PRN PRN Reason: Nausea And Vomiting Pantoprazole Sodium (Pantoprazole 40 Mg Packet) 40 mg PO QAMAC [facility] Last Admin: 05/31/21 08:30 Dose: 40 mg Documented by: Senna (Sennosides 1 Tablet) 2 tab PO HS [facility] Last Admin: 05/31/21 21:00 Dose: Not Given Documented by: Sodium Chloride (0.9 % Sodium Chloride 10 Ml Syringe) 10 ml IV Q8 [facility] Last Admin: 06/01/21 04:27 Dose: Not Given Documented by: A/P Narrative A/P Narrative: A: #Acute hypoxic respiratory failure: -on 3-4L NS #Severe COVID-19 pneumonia w/ARDS: -CRP improving #Nausea, vomiting, diarrhea: likely d/t COVID-19, improved #Mejía's esophagus / GERD: #Obesity: BMI 33 Plan: -Dexamethasone and Remdesivir (finished) -Oxygen supplementation as needed, wean as able -proning/mobilization/oob to chair -Imodium prn. 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
[2021-06-01] MEDS: PANTOPRAZOLE 40 MG PACKET PO SCH (08:34)
[2021-06-01] MEDS: ENOXAPARIN 40 MG/0.4 ML SYRINGE SQ SCH (08:46)
[2021-06-01] MEDS ORDERED: DEXAMETHASONE 4 MG TABLET PO SCH (09:30)
[2021-06-01] MEDS: DEXAMETHASONE 10 MG/ML VIAL PO SCH (10:45)
== END 2021-06-01 14:47 | disposition home or self-care (01) | DRG 177 ==
LOC: ED 04:48 → MEDSUR 09:47
PROVIDERS: ADMIT Internal Medicine; ATTEND Internal Medicine